=== PATIENT | male | born 1950 | race Caucasian/White ===

== ENCOUNTER → 2017-05-24 | Outpatient (CLI) | payer MEDICARE, BC ==
[2017-05-24 12:38] LABS: CH 30.4; CHCM 33.7; HCT 42.2 % (39.0-53.0); HDW 3.07; HGB 14.7 gm/dL (13.0-17.5); MCH 31.6 pg (25.0-35.0); MCHC 34.9 g/dL (31.0-37.0); MCV 90.4 fL (80.0-100.0); Mean Platelet Volume 6.9; RBC 4.67 m/uL (4.30-5.90); RDW 13.7 % (11.5-15.5); WBC 5.7 k/uL (3.8-10.6)
[2017-05-24 12:44] LABS: INR 1.1 (<1.2); Prothrombin Time 11.3 sec (9.0-12.0)
[2017-05-24 12:46] LABS: ALT 43 U/L (21-72); AST 27 U/L (17-59); Alkaline Phosphatase 59 U/L (38-126); Anion Gap 11 mmol/L; Blood Urea Nitrogen 14 mg/dL (9-20); Calcium 8.9 mg/dL (8.4-10.2); Carbon Dioxide 26 mmol/L (22-30); Chloride 103 mmol/L (98-107); Glucose 95 mg/dL (74-99); Non-African American GFR(MDRD) >60 (>60 ml/min/1.73 sqM); Potassium 4.7 mmol/L (3.5-5.1); Sodium 140 mmol/L (137-145); Total Bilirubin 0.7 mg/dL (0.2-1.3); Total Protein 7.4 g/dL (6.3-8.2)
[2017-05-24 12:50] LABS: Appearance,Urine Clear (Clear); Bacteria,Urine Rare /hpf; Bilirubin,Urine Negative (Negative); Glucose,Urine (UA) Negative (Negative); Ketones,Urine Negative (Negative); Leukocyte Esterase,Urine Negative (Negative); Mucus,Urine Occasional /hpf; Nitrite,Urine Negative (Negative); PH, Urine 5.5 (5.0-8.0); Particle Count 4525; Protein,Urine Trace (Negative); RBC,Urine 1 /hpf (0-5); Specific Gravity,Urine 1.022 (1.001-1.035); Squamous Epithelial Cell,Urine 1 /hpf (0-4); UA Billing (MACRO vs. MICRO) MICRO; Urobilinogen,Urine <2.0 mg/dL (<2.0); WBC,Urine 1 /hpf (0-5)
== END ==
LOC: LABPAT 11:58
PROVIDERS: ATTEND Orthopaedic Surgery
DX: Z01.812 Encounter for preprocedural laboratory examination (principal); Z51.81 Encounter for therapeutic drug level monitoring; Z79.01 Long term (current) use of anticoagulants
CPT/HCPCS: 36415; 80053; 81001; 85027; 85610; 85730; 87070

== ENCOUNTER 2017-06-15 07:30 | Inpatient (IN) | payer MEDICARE, BC ==
[2017-06-04 09:01] VITALS: BMI 50.4
[~2017-06-15 07:30] MED LIST: ACETAMINOPHEN TAB 500 MG TAB PO ONE; DEXAMETHASONE SOD PHOSPHATE 10 MG/ML 1 ML VIAL IV ONE; HYDROmorphone 1 MG/ML 1 ML SYRINGE IVP PRN; LIDOCAINE 1% 20 ML VIAL (10MG/ML) FOR IV START INTRADERMA PRN; MELOXICAM 7.5 MG TAB PO ONE; MIDAZOLAM 2 MG/2 ML VIAL IV PRN; ONDANSETRON 4 MG/2 ML VIAL IVP ONE; ROPIVACAINE 246.25 MG, EPINEPHrine 0.5 MG, KETOROLAC 30 MG, cloNIDine HCL/PF 80 MCG, WA... MISCELLANE ONE; SCOPOLAMINE 1.5MG/72HR PATCH TRANSDERM ONE; TRANEXAMIC ACID 1,000 MG in SODIUM CHLORIDE 0.9% 100 ML IVPB ONE; ceFAZolin 3 GM in SODIUM CHLORIDE 0.9% 100 ML IVPB ONE; fentaNYL (PF) 50 MCG/ML 20 ML VIAL IVP PRN
[2017-06-15] MEDS: LACTATED RINGERS 1,000 ML IV SCH (08:36)
[2017-06-15] MEDS ORDERED: LIDOCAINE 1% 20 ML VIAL (10MG/ML) FOR IV START INTRADERMA ONE (08:44)
--- NOTE | 2017-06-15 09:52 | P.ONQ ---
Anesthesiology Proc Note - PNB - Peripheral Nerve Block Performed Left Adductor Canal Indication: Acute Post-Operative Pain, Dx/Pain Location (Dr Nelson) Sedation Type: Sedate with meaningful contact maintained Preparation: Sterile Dressing Position: Supine Catheter: Indwelling Needle Types: Other (see comment) (abhijit) Needle Size: 100mm (4") Needle Gauge: 18 Injectate: 0.5% Ropivacaine (see comment for volume) (20cc) Blood Aspirated: No Pain Paresthesia on Injection Noted: No Resistance on Injection: Normal Events: Uneventful and Well Tolerated
[2017-06-15] MEDS ORDERED: fentaNYL (PF) 50 MCG/ML 2 ML AMP ONE (10:20)
[2017-06-15] MEDS ORDERED: SODIUM CHLORIDE 0.9% 100 ML BAG ONE (10:20)
[2017-06-15] MEDS ORDERED: KETAMINE 10 MG/ML 20 ML VIAL ONE (10:20)
[2017-06-15] MEDS ORDERED: TRANEXAMIC ACID 1,000 MG/10 ML VIAL ONE (10:20)
[2017-06-15] MEDS ORDERED: GLYCOPYRROLATE 0.2 MG/ML 2 ML VIAL ONE (10:20)
[2017-06-15] MEDS ORDERED: PROPOFOL 10 MG/ML 20 ML VIAL IV ONE (10:20)
[2017-06-15] MEDS ORDERED: MIDAZOLAM 2 MG/2 ML VIAL ONE (10:20)
[2017-06-15] MEDS ORDERED: hydrOXYzine PAMOATE 25 MG CAP PO PRN (10:22)
[2017-06-15] MEDS ORDERED: NA PHOS,M-B/NA PHOS,DI-BA 133 ML ENEMA RECTAL PRN (10:22)
[2017-06-15] MEDS ORDERED: HYDROmorphone 1 MG/ML 1 ML SYRINGE IVP PRN ×3 (10:22)
[2017-06-15] MEDS ORDERED: NALOXONE 0.4 MG/ML 1 ML VIAL IV PRN (10:22)
[2017-06-15] MEDS ORDERED: DIAZEPAM 5 MG TAB PO PRN ×2 (10:22)
[2017-06-15] MEDS ORDERED: MAGNESIUM HYDROXIDE 2,400 MG/10 ML CUP PO PRN (10:22)
[2017-06-15] MEDS ORDERED: BISACODYL 10 MG SUPP RECTAL PRN (10:22)
[2017-06-15] MEDS ORDERED: ONDANSETRON 4 MG/2 ML VIAL IVP PRN (10:22)
[2017-06-15] MEDS ORDERED: HYDROcodone/APAP 5-325MG 1 EACH TAB PO PRN (10:22)
[2017-06-15] MEDS ORDERED: ceFAZolin 3,000 MG in SODIUM CHLORIDE 0.9% IRRIGATIO 3,000 ML IRRIGATION ONE (10:59)
--- NOTE | 2017-06-15 12:11 | P.OP ---
Date of Procedure: 06/15/17 Preoperative Diagnosis: Severe osteoarthritis left knee Postoperative Diagnosis: Severe osteoarthritis left knee Procedure(s) Performed: Left total knee arthroplasty Implants: [employer]hew Oxinium femoral component size 8, left [employer]ango [employer]hew Ирина II left nonporous tibial baseplate size 7 [employer]hew size 9 mm Legion XLPE high flexion articular insert, size 7-8 [employer] Ирниа II resurfacing patellar component, 35 mm All components were cemented using Mackenzie bone cement.. The articulation is ceramic on polyethylene. Anesthesia: spinal Surgeon: Maulik Nelson Battery Charger Conveyor Line #1: Rowan Coyne Estimated Blood Loss (ml): 150 Pathology: other (Bone and cartilage) Condition: stable Disposition: PACU Indications for Procedure: After failure of conservative treatment we discussed the surgical and nonsurgical treatment options at length. Patient wishes to proceed with a total knee arthroplasty. Complications specific to this procedure were discussed at length, including but not limited to infection, bleeding, stiffness , and nerve injury. Patient is aware of all these complications and informed consent was obtained Operative Findings: The operative findings are consistent with severe osteoarthritis of the left knee. Description of Procedure: Patient was seen in the preoperative area consent was reviewed and operative site was marked with a skin marker. An adductor canal pain catheter was placed by anesthesia in the preoperative area. Patient was then brought to the operating room and given preoperative antibiotics intravenously. A spinal anesthetic was administered by the anesthesia department. A tourniquet was placed on the upper thigh and the lower extremity was prepped and draped in usual sterile fashion. A gram of transexamic acid was given. A universal timeout was then performed which confirmed the patient's name, surgical site, ALLERGIES, and consent. The lower extremity was then exsanguinated and tourniquet was inflated to 250 mmHg. A standard and anterior midline approach to the knee was performed. The skin and subcutaneous tissue was dissected down to the patellar tendon. A medial parapatellar arthrotomy was then performed. The knee was then extended, the patellar was everted, and the knee was again flexed. Anterior horns of both menisci were excised, and a release was performed to the posterior medial aspect of the knee. On gross visual inspection, there was complete loss of articular cartilage in the medial and patellofemoral joint spaces. There was also significant cartilage damage in the lateral compartment. There were multiple periarticular osteophytes which were then removed with a Ronguer. The femoral canal was then opened with the appropriate drill, and the intramedullary femoral cutting guide was then placed and set for 4 of valgus. The distal femoral cutting block was then pinned in place, and the distal femur was then cut. The cutting block was then removed and the cut was checked for flatness. Next, the sizing guide was then placed and set for 3 external rotation based off of the epicondylar axis and Whitesides line. After the femur was sized, the appropriate 4-in-1 cutting block was then pinned in place. The anterior condyles were cut without notching. The posterior and chamfer cuts were performed while protecting the collateral ligaments. The cutting block was then removed, and the femoral canal was plugged with autologous bone. Attention was then directed to the tibia. The remaining ACL was removed with a Ronguer, and the tibia was then gently subluxed forward with a large bent knee retractor. Any remaining menisci was excised. The posterior lateral corner was cauterized in order to cauterize the lateral geniculate artery. The extra medullary tibial cutting guide was then placed, set for the appropriate rotation , slope, and depth of resection. The proximal tibia cutting guide was then pinned in place. Proximal tibia was then cut and sized. Next trials were then placed with the appropriate-sized insert. The knee was able to fully extend and flex to 130 and was stable throughout all range of motion. The knee was then extended, patella everted. Patella was then measured, and then using an osteotomy guide, the patella was cut at the appropriate level. The patella was then measured and drilled and the patella trial was then placed. The knee was then taken through range of motion with the patella trial and the patella tracked normally. The knee was then extended patella trial was then removed and the patella was everted. Knee was then flexed and lug holes were drilled through the femoral trial and the femoral trial was then removed. The tibial was then exposed, and the tibial broach guide was then pinned in place after it was set for the appropriate rotation to allow for the most coverage without overhang. The tibia was then reamed and broached. The cut surfaces of bone were then irrigated with pulsatile lavage. The posterior structures were injected with the ropivacaine solution. The knee was also irrigated with Irrisept solution. The components were then opened, the cement was mixed, and the components were then cemented in place. The cement was allowed to harden with the knee in full extension. While the cement was hardening, the remaining soft tissues were then injected with a ropivacaine solution, which consisted of 246.25 mg of ropivacaine, 0.5 mg of epinephrine, 30 mg of Toradol, 80 g of clonidine, and 48.45 mL of sterile water, for a total of 100 mL of fluid injected. After the cemented hardened. The tourniquet was released, and hemostasis was obtained. A second gram of transexamic acid was given. The knee was again irrigated. The knee was again taken through range of motion and found to be stable throughout all range of motion of 0-130 , and the patella tracked normally. The fascia was then closed with #2 strata fix suture. The subcutaneous tissue was closed with 3-0 Vicryl and 3-0 strata fix. Dermabond tape was used for the skin and placed with the knee in flexion. The patient was placed in a sterile dressing. Patient was then transferred to recovery room in stable condition. The mri assistant ITZEL Recinos was required due the complexity surgery and the need for a skilled medical billing assistant. She assisted in positioning, draping, retraction, and closure of the wound.
[2017-06-15] MEDS: ROPIVACAINE 1,100 MG, SODIUM CHLORIDE 0.9% 330 ML MISCELLANE PRN ×4 (13:05→18:22)
--- NOTE | 2017-06-15 13:46 | XR ---
EXAMINATION TYPE: XR knee limited LT DATE OF EXAM: 06/15/2017 COMPARISON: NONE HISTORY: Postop left knee prosthesis TECHNIQUE: 2 view left knee FINDINGS: Metallic components from a tibial femoral components have been placed. No acute fractures a re evident. Postsurgical changes are within soft tissues IMPRESSION: 1. No acute fractures post left knee replacement
[2017-06-15] MEDS: ceFAZolin 2 GM in SODIUM CHLORIDE 0.9% 100 ML IVPB SCH (16:20)
[2017-06-15] MEDS ORDERED: FUROSEMIDE 40 MG TAB PO PRN (16:36)
[2017-06-15] MEDS ORDERED: POTASSIUM CHLORIDE ER 10 MEQ TAB.ER.PRT PO PRN (16:36)
[2017-06-15 16:59] LABS: INR 1.3 (<1.2); Prothrombin Time 12.4 sec (9.0-12.0)
[2017-06-15] MEDS ORDERED: WARFARIN 7.5 MG TAB PO ONE (18:00)
[2017-06-15] MEDS: ATORVASTATIN 40 MG TAB PO SCH (20:24)
[2017-06-15] MEDS: SODIUM CHLORIDE 0.9% 1,000 ML IV SCH (20:24)
[2017-06-15] MEDS: SENNOSIDES-DOCUSATE SODIUM 1 EACH TAB PO SCH (20:26)
--- NOTE | 2017-06-15 23:34 | CONS ---
CONSULTATION DATE OF CONSULTATION: 06/15/2017 REASON FOR CONSULTATION: Medical management, requested by Dr. Nelson. CONSULTATION: This is a 66-year-old patient of Dr. Zelaya whose chronic stable medical conditions include coronary artery disease with stent in 2012, hyperlipidemia, hypertension, sleep apnea, hypothyroid and depression. Patient is a An[employer]ism. Patient's is at the bedside. Patient underwent a left total knee arthroplasty. Some pain is present. No chest pain or shortness of breath. No nausea or vomiting. Propped up in bed. REVIEW OF SYSTEMS: CONSTITUTIONAL: None. HEENT: None. RESPIRATORY: None. CARDIOVASCULAR: None. GASTROINTESTINAL: None. : None. MUSCULOSKELETAL: Pain in different joints. HEMATOLOGIC: None. LYMPHATIC: None. PSYCHIATRY: Depression, controlled. NEUROLOGIC: None. PAST HISTORY: 1. Coronary artery disease with stent in 2012. 2. Hyperlipidemia. 3. Hypertension. 4. Obstructive sleep apnea. 5. Hypothyroid. 6. Depression. PAST SURGICAL HISTORY: 1. Cardiac cath with stent. 2. Joint replacement. 3. Tonsillectomy. 4. Right knee replacement. 5. Right shoulder replacement. 6. Bilateral wrist carpal tunnel in 2013. SOCIAL HISTORY: Patient is Anabaptism. Lives with his . Does not smoke. Alcohol rarely. FAMILY HISTORY: DVT. HOME MEDICATIONS: 1. Zocor 80 mg at bedtime. 2. Potassium 10 mEq daily p.r.n. 3. Cozaar 50 mg p.o. daily. 4. Synthroid 112 mcg p.o. daily. 5. Lasix 40 mg p.o. daily p.r.n. 6. Plavix 75 mg p.o. daily. 7. Celexa 20 mg p.o. daily. ALLERGIES: NONE. PHYSICAL EXAMINATION: On examination, afebrile. Pulse 55, respiration 16, blood pressure 105/54, pulse ox 96% room air. GENERAL APPEARANCE: Well built; BMI of 50.5. Lying in bed. Comfortable. EYES: Pupils equal. Conjunctivae normal. HEENT: Oral cavity normal. NECK: Short, thick. JVD unable to assess. Mass not palpable. RESPIRATORY: Effort normal. LUNGS: Distant breath sounds. CARDIOVASCULAR: Heart sounds muffled. No edema. ABDOMEN: Large, soft. Liver and spleen are palpable. LYMPHATICS: No lymph node palpable in neck or axillae. PSYCHIATRY: Alert and oriented x3. Mood and affect normal. NEUROLOGICAL: Pupils equal. Cranial nerves grossly intact. Power and sensation grossly intact. EXTREMITIES: Left knee in a dressing. INVESTIGATIONS: Blood work from 05/24/17 showed a white count of 5.7, hemoglobin 14.7, potassium 4.7. BUN and creatinine were normal. ASSESSMENT: 1. Left total knee arthroplasty. 2. Coronary artery disease with stent in 2012. 3. Hyperlipidemia. 4. Essential hypertension. 5. Obstructive sleep apnea; uses CPAP machine. 6. Hypothyroidism. 7. Depression not otherwise specified. 8. Anabaptism. 9. Morbid obesity; BMI 50.3. PLAN: Home medications are continued. DVT prophylaxis per Dr. Nelson. Patient will be maintained on Plavix for his stent, though that was close to 4 years ago. Patient does not take any aspirin. Care was discussed with the patient and his . Questions were answered. Thank you, Dr. Nelson. MMODL / IJN: [id number] /
[2017-06-16] MEDS: ceFAZolin 2 GM in SODIUM CHLORIDE 0.9% 100 ML IVPB SCH (04:11)
[2017-06-16] MEDS: SODIUM CHLORIDE 0.9% 1,000 ML IV SCH (04:11)
[2017-06-16] MEDS: LACTATED RINGERS 1,000 ML IV SCH (06:28)
[2017-06-16 06:57] LABS: Basophils % (A) 0 %; CH 30.1; CHCM 32.8; Eosinophils % (A) 0 %; HCT 39.2 % (39.0-53.0); HDW 2.91; Luc # (Auto) 0.49; Luc % (Auto) 4; Lymphocytes # (A) 1.5 k/uL (1.0-4.8); Lymphocytes % (A) 11 %; MCH 30.6 pg (25.0-35.0); MCHC 33.2 g/dL (31.0-37.0); MCV 92.1 fL (80.0-100.0); Mean Platelet Volume 6.6; Monocytes # (A) 0.9 k/uL (0-1.0); Monocytes % (A) 7 %; Neutrophils # (A) 10.5 k/uL (1.3-7.7); Neutrophils % (A) 78 %; RBC 4.26 m/uL (4.30-5.90); RDW 13.7 % (11.5-15.5); WBC 13.4 k/uL (3.8-10.6); WBC (Perox) 13.87
[2017-06-16 07:08] LABS: INR 1.2 (<1.2); Prothrombin Time 12.3 sec (9.0-12.0)
[2017-06-16] MEDS: LEVOTHYROXINE 112 MCG TAB PO SCH (07:45)
--- NOTE | 2017-06-16 08:47 | P.PN ---
Progress Note - Text The patient is status post left adductor canal catheter placement. The catheter was placed for postoperative pain control, status post total left arthroplasty. Ropivacaine 0.2% is infusing at 10 mLs per hour. The patient has no complaints of left lower extremity numbness or weakness. Patient's VAS score is 3 -10. Assessment: Patient's adductor canal catheter is in place and working appropriately. Plan: continue infusion and adjust it as needed.
[2017-06-16] MEDS: LOSARTAN 50 MG TAB PO SCH (09:15)
[2017-06-16] MEDS: HYDROcodone/APAP 5-325MG 1 EACH TAB PO PRN ×3 (09:15→21:57)
[2017-06-16] MEDS: CLOPIDOGREL 75 MG TAB PO SCH (09:16)
[2017-06-16] MEDS: CITALOPRAM HYDROBROMIDE 20 MG TAB PO SCH (09:16)
--- NOTE | 2017-06-16 09:41 | P.PN ---
Subjective Principal diagnosis: Primary osteoarthritis left knee, status post left total knee arthroplasty This is a pleasant 66-year-old male who is status post left total knee arthroplasty. This is postoperative day #1. Patient is seen and evaluated at bedside with Dr. Maulik Nelson. Patient states he has stood at the bedside. Times last night but has not worked with physical therapy yet. Patient states his pain is under control. Patient has no new complaints today. Objective - Vital Signs Vital signs: Vital Signs Temp 97.7 F 06/16/17 04:50 Pulse 55 L 06/16/17 04:50 Resp 16 06/16/17 04:50 BP 149/69 06/16/17 04:50 Pulse Ox 94 L 06/16/17 04:50 Intake & Output 06/15/17 06/16/17 06/16/17 18:59 06:59 18:59 Intake Total 1001 650 Output Total 150 1100 Balance 851 -450 Weight 168.736 kg Intake: IV 1001 Oral 650 Output: Urine 1100 Estimated Blood Loss 150 Other: Voiding Method Urinal - Exam Vital signs are stable. Patient is in no acute distress and is alert and oriented 3. Calf is soft and nontender. Incision is clean, dry, and intact. Neurovascular status intact. Patient has full foot and ankle motion. - Labs CBC & Chem 7: 06/16/17 06:36 Labs: Abnormal Lab Results - Last 24 Hours (Table) 06/15/17 06/16/17 06/16/17 Range/Units 16:07 06:36 06:36 WBC 13.4 H (3.8-10.6) k/uL RBC 4.26 L (4.30-5.90) m/uL Neutrophils # 10.5 H (1.3-7.7) k/uL PT 12.4 H 12.3 H (9.0-12.0) sec INR 1.3 H 1.2 H (<1.2) Assessment and Plan (1) Primary osteoarthritis of left knee Status: Acute Plan: #1 Continue with routine postoperative care. #2 Anticoagulation with aspirin. #3 Physical therapy and CPM today. #4 Appreciate input from medicine. #5 Anticipate discharge home with home care likely tomorrow.
[2017-06-16 14:52] VITALS: RESP 16
--- NOTE | 2017-06-16 16:15 | P.PN ---
<Dexter Nolasco - Last Filed: 06/17/17 12:06> Progress Note - Text Attending note. Date of service-06/16/2017 This patient was seen and examined by me . Discussed the patient with my nurse practitioner Ms. Galeano. Sitting on a chair. Comfortable. Some pain is present. Tolerating a diet. No chest pain no shortness of breath. On examination: Lungs-distant breath sounds, cardiovascular heart sounds distant. sitting up comfortable Investigations: White count 13.4 Assessment and plan: Left total knee arthroplasty. Leukocytosis likely reactive from surgery. Per orthopedics incision healing well. Care discussed with the patient. <Tri Galeano - Last Filed: 06/17/17 16:27> Progress Note - Text DATE OF SERVICE: 06/16/2017 PRESENTING COMPLAINT: Left knee pain HISTORY OF PRESENT ILLNESS: 66-year-old male was Baptist underwent a left total knee arthroplasty. INTERVAL HISTORY: 06/16/2017: Patient sitting up in the bed, pain is well controlled with current medication regimen and On-Q pain pump, no nausea or vomiting, tolerating his diet, no BM since admission, agreeable to work with physical and occupational therapy. REVIEW OF SYSTEMS: Done for constitutional ,cardiovascular, GI, pulmonary, musculoskeletal with relevant findings as above. CURRENT MEDICATIONS [place], Lipitor, Dulcolax, Celexa, Plavix, Valium, Lasix, Cozaar, milk of magnesia, Synthroid, senna. PHYSICAL EXAM VITAL SIGNS: Temperature 98.2, pulse 86, respirations 18, pressure 138/78, oxygen saturation 99% on room air. GENERAL APPEARANCE: Sitting up in bed, not in distress. EYES: Pupils equal. Conjunctiva normal. NECK: JVD not raised. Mass not palpable. RESPIRATORY: Respiratory effort normal. Lungs distant to auscultation. CARDIOVASCULAR: First and second sounds normal. No edema. ABDOMEN: Soft. Liver and spleen not palpable. No tenderness. No mass palpable. PSYCHIATRY: Alert and oriented x3. Mood and affect normal. MUSCULOSKELETAL: Left knee covered with a dry dressing tender to palpation. On- Q pain pump in place INVESTIGATIONS: White blood cell count 13.4, hemoglobin 13.0 INR 1.2. ASSESSMENT: -Left total knee arthroplasty. -Leukocytosis, likely reactive to surgery. -Coronary artery disease with stent in 2012. -Hyperlipidemia. -Essential hypertension. -Obstructive sleep apnea, uses a CPAP machine. -Hypothyroidism. -Depression otherwise specified. -Baptist. -Morbid obesity, TMI 50.3 PLAN: Continue DVT prophylaxis and pain management per orthopedic protocols, continue Plavix for patient stent. Orthopedics we'll manage the On-Q pain pump as well. We'll monitor daily labs for leukocytosis. We'll continue to monitor closely , plan of care discussed with patient the bedside questions answered patient is in agreement. RN ANGIOGRAPHY statement: Patient was seen and examined by nurse practitioner Tri Galeano and all elements of the case discussed with attending Dr. Nolasco
[2017-06-16] MEDS ORDERED: WARFARIN 7.5 MG TAB PO ONE (18:00)
[2017-06-16] MEDS: SENNOSIDES-DOCUSATE SODIUM 1 EACH TAB PO SCH (20:43)
[2017-06-16] MEDS: ATORVASTATIN 40 MG TAB PO SCH (20:43)
[2017-06-17] MEDS: SODIUM CHLORIDE 0.9% 1,000 ML IV SCH (03:42)
[2017-06-17] MEDS: LACTATED RINGERS 1,000 ML IV SCH (03:43)
[2017-06-17] MEDS: HYDROcodone/APAP 5-325MG 1 EACH TAB PO PRN ×2 (04:17→12:03)
[2017-06-17 07:12] LABS: INR 1.6 (<1.2); Prothrombin Time 15.6 sec (9.0-12.0)
[2017-06-17] MEDS: CLOPIDOGREL 75 MG TAB PO SCH (08:06)
[2017-06-17] MEDS: LEVOTHYROXINE 112 MCG TAB PO SCH (08:06)
[2017-06-17] MEDS: CITALOPRAM HYDROBROMIDE 20 MG TAB PO SCH (08:07)
[2017-06-17] MEDS: LOSARTAN 50 MG TAB PO SCH (08:07)
[2017-06-17 08:30] VITALS: BP 123/76; PULSE 59; TEMP 97.9
--- NOTE | 2017-06-17 08:30 | P.DS ---
Providers Date of admission: 06/15/17 08:05 Expected date of discharge: 06/17/17 Attending physician: Maulik Nelson Consults: 06/15/17 10:22 Consult Physician Routine Consulting Provider: Hernán Zelaya Consult Reason/Comments: medical management Do you want consulting provider notified?: Yes 06/15/17 13:49 Consult Physician Routine Consulting Provider: Dexter Nolasco Consult Reason/Comments: medical managment Do you want consulting provider notified?: Yes Primary care physician: Hernán Zelaya - Discharge Diagnosis(es) (1) Primary osteoarthritis of left knee Current Visit: Yes Status: Acute (2) S/P total knee arthroplasty Current Visit: Yes Status: Acute Hospital Course: This is a 66-year-old male with known history of degenerative arthritis of the left knee. The patient presents for evaluation. After discussion and consideration patient elects to proceed with total knee arthroplasty. The patient is seen preoperatively by Dr. Nelson and cleared for surgery. Patient is admitted to [facility] on 06/15/2017 for total knee arthroplasty. The procedures performed without complication or sequelae. The patient is doing well postoperatively. Labs and vital signs are stable on day of discharge. On day of discharge patient's knee incision is healing well. There is minimal erythema. There is no drainage noted at this time. There is minimal soft tissue swelling to the knee. Patient has full foot and ankle motion without difficulty or pain. Neurovascular status to the left lower extremity is intact. Patient is discharged home in good condition. Please see med rec for accurate list of home medications. Plan - Discharge Summary New Discharge Prescriptions: New HYDROcodone/APAP 5-325MG [[place]ney 5-325] 1 - 2 tab PO Q4-6H PRN #90 tab PRN Reason: Pain Sennosides-Docusate Sodium [Senokot-S] 1 tab PO BID #60 tablet No Action Citalopram Hydrobromide [CeleXA] 20 mg PO DAILY Simvastatin [Zocor] 80 mg PO HS Levothyroxine Sodium [Synthroid] 112 mcg PO DAILY Losartan [Cozaar] 50 mg PO DAILY Clopidogrel [Plavix] 75 mg PO DAILY Furosemide [Lasix] 40 mg PO DAILY PRN PRN Reason: Edema Potassium Chloride [Klor-Con 10] 10 meq PO DAILY PRN PRN Reason: Edema Discharge Medication List Citalopram Hydrobromide [CeleXA] 20 mg PO DAILY 10/14/14 [History] Clopidogrel [Plavix] 75 mg PO DAILY 10/14/14 [History] Levothyroxine Sodium [Synthroid] 112 mcg PO DAILY 10/14/14 [History] Losartan [Cozaar] 50 mg PO DAILY 10/14/14 [History] Simvastatin [Zocor] 80 mg PO HS 10/14/14 [History] Furosemide [Lasix] 40 mg PO DAILY PRN 06/04/17 [History] Potassium Chloride [Klor-Con 10] 10 meq PO DAILY PRN 06/04/17 [History] HYDROcodone/APAP 5-325MG [[place]ney 5-325] 1 - 2 tab PO Q4-6H PRN #90 tab 06/17/17 [ Rx] Sennosides-Docusate Sodium [Senokot-S] 1 tab PO BID #60 tablet 06/17/17 [Rx] Follow up Appointment(s)/Referral(s): [facility], [NON-STAFF] - Maulik Nelson DO [Doctor of Osteopathic Medicine] - 2 Weeks Ambulatory/Diagnostic Orders: Continuous Passive Motion (CPM) Machine [DME.AMB1] Time Frame: 2 Weeks, Location : Determined By Patient Activity/Diet/Wound Care/Special Instructions: Weightbearing as tolerated with a walker CPM 5-6h daily Daily dressing changes, keep incision clean and dry May shower if no drainage from incision [facility] with questions or concerns [phone] Discharge Disposition: HOME SELF-CARE
--- NOTE | 2017-06-17 16:25 | P.PN ---
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 INTERVAL HISTORY: 06/17/2017: Patient sitting up in a recliner at the bedside pain is well-controlled with current pain medication regimen On-Q pain pump, no nausea or vomiting, tolerating his diet, last BM 06/17/2017, agreeable to work with physical and occupational therapy. 06/16/2017: Patient sitting up in the bed, pain is well controlled with current medication regimen and On-Q pain pump, no nausea or vomiting, tolerating his diet, no BM since admission, agreeable to work with physical and occupational therapy. REVIEW OF SYSTEMS: Done for constitutional ,cardiovascular, GI, pulmonary, musculoskeletal with relevant findings as above. CURRENT MEDICATIONS [employer] [place] [place], Lipitor, Dulcolax, Celexa, Plavix, Valium, Lasix, Cozaar, milk of magnesia, Synthroid, senna. PHYSICAL EXAM VITAL SIGNS: Temperature 98.2, pulse 86, respirations 18, pressure 138/78, oxygen saturation 99% on room air. GENERAL APPEARANCE: Sitting up in bed, not in distress. EYES: Pupils equal. Conjunctiva normal. NECK: JVD not raised. Mass not palpable. RESPIRATORY: Respiratory effort normal. Lungs distant to auscultation. CARDIOVASCULAR: First and second sounds normal. No edema. ABDOMEN: Soft. Liver and spleen not palpable. No tenderness. No mass palpable. PSYCHIATRY: Alert and oriented x3. Mood and affect normal. MUSCULOSKELETA l: Left knee covered with a dry dressing . On-Q pain pump in place INVESTIGATIONS: INR 1.6, ASSESSMENT: -Left total knee arthroplasty. -Leukocytosis, likely reactive from surgery. -Coronary artery disease with stent in 2012. -Hyperlipidemia. -Essential hypertension. -Obstructive sleep apnea, uses a CPAP machine. -Hypothyroidism. -Depression otherwise specified. -Restorationist. -Morbid obesity, TMI 50.3 PLAN: Continue DVT prophylaxis and pain management per orthopedic protocols, continue Plavix for patient stent. Orthopedics we'll manage the On-Q pain pump as well. We'll monitor daily labs for leukocytosis. We'll continue to monitor closely , plan of care discussed with patient the bedside questions answered patient is in agreement. MILK TANKER DRIVER statement: Patient was seen and examined by nurse practitioner Tri Galeano and all elements of the case discussed with attending Dr. Nolasco
--- NOTE | 2017-06-17 22:35 | PN ---
PROGRESS NOTE DATE OF SERVICE: June 17/2017. ATTENDING NOTE: This patient seen and examined by me today. Discussed with my nurse practitioner Ms. Galeano. The patient is status post left total knee arthroplasty. Sitting up in a chair comfortable. Feels well. Lungs distant breath sounds. Cardiovascular heart sounds distant. Feeling good. ASSESSMENT: Leukocytosis likely from surgery, incision healing well per orthopedics. Care was discussed with the patient. Follow with family doctor upon discharge. Thank you. DMITRIY / ARIANN: [id number] /
== END 2017-06-17 12:10 | disposition home health service (06) | DRG 470 ==
LOC: 2ORMAIN 08:05 → 3SUR 12:43
PROVIDERS: ADMIT Orthopaedic Surgery; ATTEND Orthopaedic Surgery
PROC: 0SRD0J9 Replacement of Left Knee Joint with Synthetic Substitute, Cemented, Open Approach (ICD-10-PCS; principal; 2017-06-15 09:45)
DX: M17.12 Unilateral primary osteoarthritis, left knee (principal); E66.01 Morbid (severe) obesity due to excess calories; I10 Essential (primary) hypertension; E03.9 Hypothyroidism, unspecified; D72.829 Elevated white blood cell count, unspecified; E78.5 Hyperlipidemia, unspecified; Z96.611 Presence of right artificial shoulder joint; Z96.651 Presence of right artificial knee joint; F32.9 Major depressive disorder, single episode, unspecified; G47.33 Obstructive sleep apnea (adult) (pediatric); I25.10 Atherosclerotic heart disease of native coronary artery without angina pectoris; Z79.02 Long term (current) use of antithrombotics/antiplatelets; Z79.899 Other long term (current) drug therapy; Z95.5 Presence of coronary angioplasty implant and graft
CPT/HCPCS: 85025; 85610; 88300

== ENCOUNTER → 2023-04-19 | Outpatient (CLI) | payer MEDICARE, BC ==
[2023-04-19 16:05] LABS: Blood Urea Nitrogen 15.5 mg/dL (9.0-27.0); Chloride 102 mmol/L (96-109); Potassium 4.5 mmol/L (3.5-5.5); Sodium 139 mmol/L (135-145)
[2023-04-19 16:49] LABS: HCT 44.3 % (39.6-50.0); HGB 14.8 d/dL (12.0-15.0); MCH 30.2 pg (27.0-32.0); MCHC 33.4 d/dL (32.0-37.0); MCV 90.4 FL (80.0-97.0); Mean Platelet Volume 9.7 FL (9.5-12.2); NRBC Per 100 WBC 0 X 10*3/uL (0.00-0.01); Platelet Count 249 X 10*3/uL (140-440); WBC 7.12 X 10*3/uL (4.50-10.00)
== END | disposition home or self-care (01) ==
LOC: LABWHC1 10:48
PROVIDERS: ATTEND Internal Medicine Interventional Cardiology
DX: Z01.812 Encounter for preprocedural laboratory examination (principal); I25.10 Atherosclerotic heart disease of native coronary artery without angina pectoris
CPT/HCPCS: 36415; 80051; 82565; 84520; 85027

== ENCOUNTER 2023-04-26 06:07 | Day surgery (SDC) | payer MEDICARE, BC ==
[~2023-04-26 06:07] MED LIST changes: -ACETAMINOPHEN TAB 500 MG TAB PO ONE; +ALPRAZolam 0.25 MG TAB PO PRN; +ALPRAZolam 0.5 MG TAB PO PRN; +ASPIRIN 325 MG TAB PO STA; +ATORVASTATIN 80 MG TAB PO STA; -DEXAMETHASONE SOD PHOSPHATE 10 MG/ML 1 ML VIAL IV ONE; +HEPARIN SODIUM,PORCINE 10,000 UNIT in SODIUM CHLORIDE 0.9% 1,000 ML IRRIGATION PRN; +HEPARIN SODIUM,PORCINE 2,500 UNIT in SODIUM CHLORIDE 0.9% 250 ML IRRIGATION PRN; -HYDROmorphone 1 MG/ML 1 ML SYRINGE IVP PRN; -LIDOCAINE 1% 20 ML VIAL (10MG/ML) FOR IV START INTRADERMA PRN; -MELOXICAM 7.5 MG TAB PO ONE; -MIDAZOLAM 2 MG/2 ML VIAL IV PRN; +NITROGLYCERIN SL TABS 0.4 MG TAB SUBLINGUAL PRN; -ONDANSETRON 4 MG/2 ML VIAL IVP ONE; -ROPIVACAINE 246.25 MG, EPINEPHrine 0.5 MG, KETOROLAC 30 MG, cloNIDine HCL/PF 80 MCG, WA... MISCELLANE ONE; -SCOPOLAMINE 1.5MG/72HR PATCH TRANSDERM ONE; -TRANEXAMIC ACID 1,000 MG in SODIUM CHLORIDE 0.9% 100 ML IVPB ONE; -ceFAZolin 3 GM in SODIUM CHLORIDE 0.9% 100 ML IVPB ONE; -fentaNYL (PF) 50 MCG/ML 20 ML VIAL IVP PRN
[2023-04-26] MEDS ORDERED: SODIUM CHLORIDE 0.9% 1,000 ML IV ONE (06:50)
[2023-04-26] MEDS ORDERED: fentaNYL (PF) 50 MCG/ML 2 ML AMP ONE (07:09)
[2023-04-26] MEDS ORDERED: VERAPAMIL 2.5 MG/ML 2 ML AMP ONE (07:09)
[2023-04-26] MEDS ORDERED: HEPARIN SODIUM 1,000 UN/ML (10ML VL) ONE ×2 (07:09→08:50)
[2023-04-26] MEDS ORDERED: MIDAZOLAM 2 MG/2 ML VIAL IVP ONE ×2 (07:52→08:45)
[2023-04-26] MEDS ORDERED: LIDOCAINE 1% INJ 10MG/ML (5 ML VIAL-PF) SQ ONE (07:53)
[2023-04-26] MEDS ORDERED: VERAPAMIL SYRINGE (5 MG/10 ML) INTRAARTER ONE (07:54)
[2023-04-26] MEDS ORDERED: HEPARIN SODIUM 1,000 UN/ML (10ML VL) IVP ONE ×2 (08:00→08:10)
[2023-04-26] MEDS ORDERED: fentaNYL (PF) 50 MCG/ML 2 ML AMP IVP ONE ×2 (08:12→08:56)
[2023-04-26] MEDS ORDERED: IOPAMIDOL-370 100ML BTL INJ ONE ×2 (08:17→09:08)
[2023-04-26] MEDS ORDERED: PRASUGREL 10 MG TAB ONE (08:23)
[2023-04-26] MEDS ORDERED: PRASUGREL 10 MG TAB PO ONE (08:31)
[2023-04-26] MEDS: HEPARIN SODIUM 1,000 UN/ML (10ML VL) IVP ONE ×2 (08:51→09:12)
[2023-04-26] MEDS ORDERED: ASPIRIN 325 MG TAB PO PRN (09:19)
[2023-04-26] MEDS ORDERED: NITROGLYCERIN SL TABS 0.4 MG TAB SUBLINGUAL PRN (09:20)
[2023-04-26] MEDS ORDERED: ATROPINE SULFATE 0.1 MG/ML 10ML SYRINGE IV PRN (09:20)
[2023-04-26] MEDS ORDERED: ZOLPIDEM 5 MG TAB PO PRN (09:20)
[2023-04-26] MEDS ORDERED: RX INFO: IV CONTRAST WAS GIVEN 1 EACH MISC MISCELLANE PRN (09:20)
[2023-04-26] MEDS ORDERED: MAG HYDROX/AL HYDROX/SIMETH 30 ML CUP PO PRN (09:20)
[2023-04-26] MEDS ORDERED: SODIUM CHLORIDE 0.9% 1,000 ML in EMPTY BAG 1 BAG IV SCH (09:30)
--- NOTE | 2023-04-26 09:36 | P.PCN ---
Date of Procedure: 04/26/23 Operative Findings: CARDIAC CATHETERIZATION AND PERCUTANEOUS CORONARY INTERVENTION PERFORMING PHYSICIAN: Ruben Niño MD, [facility] PROCEDURE PERFORMED: 1. Selective right and left coronary angiogram 2. Left heart catheterization 3. Successful stenting of proximal LAD using 4.0 x 15 mm Xience DAVID with an excellent angiographic results 4. Adjunctive use off intravascular imaging and Doppler wire and lithotripsy balloon 5. Ultrasound-guided access of the left radial artery INDICATION: Chest discomfort and abnormal myocardial dobutamine assess echocardiogram for this 72-year-old gentleman who is known to have CAD with prior stenting of the RCA and LAD. Beside that he does have hypertension and dyslipidemia and obesity COMPLICATION: None APPROACH: Left radial artery LEVEL OF SEDATION: Moderate with the sedation time off 84 minutes PROCEDURE DESCRIPTION: After obtaining an informed consent the patient was brought to the cardiac custodial laborer. The left common femoral artery was cannulated using micropuncture technique under ultrasound guidance, the micropuncture wire passed easily then I'll place a 6-Greek sheath. I gave the patient 2 mg of verapamil intra- arterial and initially 5000 use of heparin intravenous with additional heparin throughout the procedure with continuous ACT monitoring. Subsequently I did selective right and left coronary angiogram using JL4 and JR4 catheters. Left heart catheterization was performed using 6-Greek pigtail catheter. After that I did intervene on the left anterior descending artery. The procedure was completed was no complication SELECTIVE CORONARY ANGIOGRAM: The right coronary artery: Large caliber vessel and a dominant vessel. The RCA itself has mild disease only. Distally bifurcates into PDA and PLV branches. The PLV branch of the RCA has intermediate lesion appeared to be in the range of 50% Left main: Is angiographically normal. Bifurcates into an LCx and LAD The left circumflex: Large caliber vessel nondominant vessel. The LCx has mild disease only. Gives rises into a large OM branch which appeared to be angiographically normal The left anterior descending artery: Proximal LAD has intermediate to severe lesion. We did iFR and that came in to be ischemic at 0.74. The mid and distal LAD has mild to moderate diffuse disease. HEMODYNAMICS: LVEDP was 7 mmHg was no significant gradient across aortic valve PCI OF THE LAD: Anticoagulation was initiated using heparin with continuous ACT monitoring. Subsequently I engaged the left main using JL4 guiding catheter. Before engaging the left main and because we decided to do a Doppler wire the LAD I did this 0 the Doppler wire and equalized between the Doppler wire and guiding catheter which was JL4 guiding catheter. Subsequently I did engage the left main and the LAD was wired. The wire was advanced distal to the lesion in the proximal LAD. We did iFR and that came in to be ischemic at 0.74. At that point I decided to do intravascular ultrasound of the left anterior descending artery. The intravascular ultrasound showed heavily calcified lesion with an arc of calcium about 180. I decided to do lithotripsy balloon. Attempting advancing the lithotripsy balloon over the Doppler wire was unsuccessful in spite of using guide liner. Subsequently the wire kinked and I pulled the wire out and I pulled the guidewire out. After that I attempted engaging the left main using extra backup support guiding catheter but that was unsuccessful so I decided to go again and use a JL4 guiding catheter. The left main was engaged using JL4 guiding catheter. I did at that point wire the LAD using 2 wires. The first one was a run-through wire and the second one was whisper wire. The run-through wire was a joseph wire and whisper wire was a working wire. Please note that continuous ACT monitoring was performed throughout the procedure. Subsequently I did predilatation of the LAD using compliant balloon then I did lithotripsy balloon which was 3.5 x 12 mm. The balloon was inflated twice. Then I deployed a 4.0 x 15 mm stent where the stent was positioned under fluoroscopy guidance and the stent was deployed under 12 lanre for 20 seconds. Final angiogram was performed showed good angiographic results and I did intravascular ultrasound again and that showed that the stent was well opposed and well expanded. The procedure was completed was no complication CONCLUSION: 1. Patent stents in the right coronary artery. The PLV branch of the RCA has intermediate to severe lesion appeared to be in the range of 60% 2. Intermediate to severe disease involving the proximal LAD. iFR was ischemic. I did perform successful stenting of the LAD as described above. Intermediate lesion involving the mid LAD 3. Normal left-sided filling pressure POSTPROCEDURE MANAGEMENT: 1. Dual antiplatelet therapy using aspirin and Effient for 12 month 2. Aggressive cholesterol control 3. Follow-up with the patient
[2023-04-26] MEDS ORDERED: SODIUM CHLORIDE 0.9% 500 ML 500 ML IV ONE (10:30)
[2023-04-26] MEDS: SODIUM CHLORIDE 0.9% 1,000 ML in EMPTY BAG 1 BAG IV SCH ×4 (16:35→21:08)
[2023-04-26] MEDS ORDERED: ACETAMINOPHEN TAB 500 MG TAB PO STA (20:58)
[2023-04-26] MEDS ORDERED: ATORVASTATIN 40 MG TAB PO SCH (21:00)
[2023-04-27] MEDS: SODIUM CHLORIDE 0.9% 1,000 ML in EMPTY BAG 1 BAG IV SCH (05:16)
[2023-04-27] MEDS ORDERED: LEVOTHYROXINE 112 MCG TAB PO SCH (06:30)
[2023-04-27 06:51] LABS: African American GFR (CKD) 71 (>60 ml/min/1.73 sqM); Non-African American GFR(CKD) 61 (>60 ml/min/1.73 sqM)
[2023-04-27 08:20] VITALS: BP 119/73; PULSE 58; RESP 20; TEMP 97.6
--- NOTE | 2023-04-27 08:44 | P.DS ---
Providers Attending physician: Ruben Niño Consults: 04/26/23 09:20 Consult Physician Routine Consulting Provider: [facility] Consult Reason/Comments: Post Interventional patient Do you want consulting provider notified?: Already Contacted Primary care physician: Hernán [facility] Hospital Course: The patient is a 73-year-old gentleman who underwent yesterday a heart catheterization and stenting of the left anterior descending artery. The patient was seen and evaluated this morning. He is asymptomatic and he is hemodynamically stable. The right radial site is soft nontender. The patient is going to be discharged home on dual antiplatelet therapy and statin and I'll follow-up with the patient next week in the office Plan - Discharge Summary Discharge Rx Participant: No New Discharge Prescriptions: New Prasugrel [Effient] 10 mg PO DAILY #90 tab Continue Citalopram Hydrobromide [CeleXA] 20 mg PO QAM Simvastatin [Zocor] 80 mg PO HS Levothyroxine Sodium [Synthroid] 112 mcg PO QAM Losartan [Cozaar] 50 mg PO QAM buPROPion HCL [buPROPion HCL XL] 300 mg PO QAM Aspirin 325 mg PO DAILY PRN PRN Reason: Per Protocol Chlorthalidone 25 mg PO QAM Discharge Medication List Citalopram Hydrobromide [CeleXA] 20 mg PO QAM 10/14/14 [History] Levothyroxine Sodium [Synthroid] 112 mcg PO QAM 10/14/14 [History] Losartan [Cozaar] 50 mg PO QAM 10/14/14 [History] Simvastatin [Zocor] 80 mg PO HS 10/14/14 [History] Chlorthalidone 25 mg PO QAM 04/21/23 [History] buPROPion HCL [buPROPion HCL XL] 300 mg PO QAM 04/21/23 [History] Aspirin 325 mg PO DAILY PRN 04/26/23 [History] Prasugrel [Effient] 10 mg PO DAILY #90 tab 04/27/23 [Rx] Follow up Appointment(s)/Referral(s): Ruben Niño MD [STAFF PHYSICIAN] - 1 Week (FOLLOW UP APPOINTMENT IS ON April @ 3:45PM ) Patient Instructions/Handouts: Moderate Sedation (DC), Heart Catheterization (DC), After Radial Heart Catheterization (GEN) Activity/Diet/Wound Care/Special Instructions: *NO LIFTING, PUSHING, OR PULLING ANYTHING OVER 5 POUNDS FOR 5 DAYS *NO DRIVING FOR 3 DAYS *YOU CAN REMOVE YOUR DRESSING AND SHOWER TOMORROW BUT DO NOT SUBMERSE YOUR PUNCTURE SITE IN WATER FOR A FEW DAYS TO PREVENT INFECTION - SO NO TUB BATHS, POOLS, HOT TUBS, DISHES...ETC *ANY SIGNS OF BLEEDING (HARDNESS, SWELLING, OR EXCESSIVE BRUISING) HOLD DIRECT PRESSURE ON YOUR PUNCTURE SITE AND COME TO THE NEAREST EMERGENCY ROOM TO GET YOUR PUNCTURE SITE LOOKED AT - DO NOT DRIVE YOURSELF! EITHER CALL EMS OR HAVE SOMEONE DRIVE YOU!
[2023-04-27] MEDS ORDERED: LOSARTAN 50 MG TAB PO SCH (09:00)
[2023-04-27] MEDS ORDERED: CHLORTHALIDONE 25 MG TAB PO SCH (09:00)
[2023-04-27] MEDS ORDERED: buPROPion XL 300 MG TAB.ER.24H PO SCH (09:00)
[2023-04-27] MEDS ORDERED: PRASUGREL 10 MG TAB PO SCH (09:00)
[2023-04-27] MEDS ORDERED: CITALOPRAM HYDROBROMIDE 20 MG TAB PO SCH (09:00)
[2023-04-27 11:06] VITALS: BMI 52.9
== END 2023-04-27 11:24 | disposition home or self-care (01) ==
LOC: CATHCVL 06:07 → 6NMEDSUR 09:10 → CATHCVL 04-27 11:24
PROVIDERS: ATTEND Internal Medicine Interventional Cardiology
DX: I25.10 Atherosclerotic heart disease of native coronary artery without angina pectoris (principal); I10 Essential (primary) hypertension; E78.5 Hyperlipidemia, unspecified; Z79.899 Other long term (current) drug therapy; Z95.5 Presence of coronary angioplasty implant and graft
CPT/HCPCS: 94760; 92978; 93458; 93799; 0715T; 82565; C1769 ×5; C9600; C1887 ×3; C1894; C1725; C1753; C1874; C1761; J2250; J2001; J3010; J1644; Q9967